=== PATIENT | female | born 1980 | race Caucasian/White ===

== ENCOUNTER 2019-10-20 10:52 | Emergency (ER) | payer OTHER, SELFPAY ==
--- NOTE | ~2019-10-20 | XR_ITS ---
EXAMINATION: XR chest 2V EXAM DATE: 10/20/2019 12:15 INDICATION: Shortness of breath with mid chest pain on inspiration. TECHNIQUE: Frontal and lateral projections of the chest obtained and reviewed. Comparison is made to prior examination from 05/02/2015. FINDINGS: The lungs are clear. There are no pleural effusions. The cardiomediastinal silhouette is within normal limits. There is no pneumothorax suspected. The bones and soft tissues are unremarkab le. IMPRESSION: No acute cardiopulmonary findings. Reviewed, dictated and finalized at location A. WORKER
[2019-10-20 10:56] VITALS: BP 96/77; PULSE 108; RESP 20; TEMP 36.6; O2SAT 100
--- NOTE | 2019-10-20 11:47 | ED.SOB ---
HPI - SOB/Dyspnea General Chief Complaint: Shortness of Breath/Dyspnea Stated Complaint: Breathing problems Time Seen by Provider: 10/20/19 11:46 Source: patient and RN notes reviewed Mode of arrival: ambulatory Limitations: no limitations History of Present Illness HPI Narrative: Pt is a 39 y/o female presenting to the ED c/o SOB. Pt reports she started experiencing SOB about 2 weeks ago that feels like I'm smoking a menthol cigarette when I breath . Pt also reports dry cough, cheat heaviness, and near-syncope earlier today, but denies fever or N/V. Pt states she has a Hx of COPD but notes she had a negative stress test and Echocardiogram 5 months ago. Pt states she has an inhaler at home but notes it has had no effect on her Sx's. Pt reports she is a smoker. Pertinent past history: COPD Onset (ago): week(s) (2) Associated symptoms: chest pain (Heaviness), cough (Dry) and syncope (Near) Related Data Allergies Allergy/AdvReac Type Severity Reaction Status Date / Time Penicillins Allergy Intermediate Rash Verified 10/20/19 10:58 Review of Systems Review of Systems: Narrative: Constitutional: Negative for fever. Respiratory: Positive for dyspnea and dry cough. Cardiovascular: Positive for chest heaviness. Gastrointestinal: Negative for nausea or vomiting. Neurological: Positive for near-syncope. All systems reviewed & are unremarkable except as noted in HPI and below PMFSH Past Medical History Medical History Bronchitis Cervical cancer COPD (chronic obstructive pulmonary disease) HLD (hyperlipidemia) Ovarian cyst Surgical History Surgical History H/O exploratory laparotomy H/O tubal ligation Family History Family History Father Patient's father is Other Diabetes mellitus Hypertension Social History Social History Smoking status: Current every day smoker Second hand tobacco smoke exposure: Yes Alcohol intake: current Gender identity (if verbalized by the patient): Female Exam Narrative: Exam Narrative: Constitutional: Appears well-developed. No distress. Nose: Nose normal. Eyes: Conjunctiva are normal. Neck: Normal range of motion. Neck supple. Cardiovascular: Normal rate and regular rhythm. Pulmonary/Chest: Effort normal and breath sounds normal. Abdominal: Soft. There is no tenderness. Musculoskeletal: Normal range of motion. No edema. Neurological: Alert and oriented to person, place, and time. Skin: Skin is warm. No pallor. Psychiatric: Normal mood and affect. Course Vital Signs Vital signs: Vital Signs Temperature 36.6 C 10/20/19 10:56 Pulse Rate 108 H 10/20/19 10:56 Respiratory Rate 20 10/20/19 10:56 Blood Pressure 96/77 L 10/20/19 10:56 Pulse Oximetry 100 10/20/19 10:56 Temperature 36.6 C 10/20/19 10:56 Pulse Rate 82 10/20/19 15:57 Respiratory Rate 17 10/20/19 15:57 Blood Pressure 106/71 10/20/19 15:57 Pulse Oximetry 99 10/20/19 15:57 MDM - SOB/Dyspnea Lab Data Result diagrams: 10/20/19 12:01 10/20/19 12:01 Labs: Lab Results 10/20/19 10/20/19 10/20/19 Range/Units 12:01 12:01 12:01 WBC 6.7 (4.5-10.0) K/mm3 RBC 4.71 (4.2-5.4) M/mm3 Hgb 15.5 H (12.0-15.0) g/dL Hct 46.0 (37.0-47.0) % MCV 97.7 (80-100) fl MCH 32.9 (26-34) pg MCHC 33.7 (32-36) g/dl RDW 12.2 (11.5-14.5) % Plt Count 232 (150-375) k/mm3 MPV 10.4 (7.4-10.4) fl Immature Gran % (Auto) 0.3 (0-0.5) % Neut % (Auto) 60.2 (45.5-73.1) % Lymph % (Auto) 29.8 (18.3-44.2) % Alexander % (Auto) 7.7 (2.6-8.5) % Eos % (Auto) 1.3 (0-4.4) % Baso % (Auto) 0.7 (0.2-1.2) % Lymph # (Auto) 2.00 (0.9-3.2) K/mm3 Alexander # (Auto) 0.5 (0.1-0.6) K/mm3 Eos # (Auto) 0.1 (0-0.3) K
--- NOTE | 2019-10-20 11:50 | ECG_ITS ---
Measurements Intervals Calvin Rate: 92 P: 59 DC: 152 QRS: 60 QRSD: 85 T: 26 QT: 343 QTc: 425 Interpretive Statements SINUS RHYTHM POSSIBLE LEFT ATRIAL ENLARGEMENT LOW QRS VOLTAGE IN LIMB LEADS BORDERLINE ST-T WAVE ABNORMALITY- ANT/INF LEADS BORDERLINE ECG Electronically Signed On 10-20-2019 12:01:16 SOFTWARE PERFORMANCE ENGINEER by Alex Cee D.O.
[2019-10-20 12:09] LABS: Basophils Absolute Auto 0.1 K/mm3 (0.0-0.1); Basophils Percent Auto 0.7 % (0.2-1.2); Eosinophils Absolute Auto 0.1 K/mm3 (0-0.3); Eosinophils Percent Auto 1.3 % (0-4.4); Hemoglobin 15.5 g/dL (12.0-15.0); Immature Granulocyte Absolute 0.02 K/mm3 (0.00-0.031); Immature Granulocyte Percent A 0.3 % (0-0.5); Lymphocytes Percent Auto 29.8 % (18.3-44.2); Mean Corpuscular HGB Conc 33.7 g/dl (32-36); Mean Corpuscular Hemoglobin 32.9 pg (26-34); Mean Corpuscular Volume 97.7 fl (80-100); Mean Platelet Volume 10.4 fl (7.4-10.4); Monocytes Absolute Auto 0.5 K/mm3 (0.1-0.6); Monocytes Percent Auto 7.7 % (2.6-8.5); Neutrophils Percent Auto 60.2 % (45.5-73.1); Platelet Count Result 232 k/mm3 (150-375); Red Blood Count 4.71 M/mm3 (4.2-5.4); Red Cell Distribution Width 12.2 % (11.5-14.5); White Blood Count 6.7 K/mm3 (4.5-10.0)
[2019-10-20 12:21] LABS: Alanine Aminotransferase 26 U/L (4-35); Alkaline Phosphatase 87 U/L (38-126); Aspartate Amino Transferase 30 U/L (14-36); Bilirubin,Total 0.3 mg/dL (0.2-1.3); Blood Urea Nitrogen 12 mg/dL (7-17); Calcium 8.8 mg/dL (8.4-10.2); Carbon Dioxide 23 mmol/L (22-30); Chloride 101 mmol/L (98-107); Estimated Glomerular Filt Rate > 60; Glucose 101 mg/dL (65-105); Potassium 3.9 mmol/L (3.4-5.0); Sodium 137 mmol/L (137-145)
[2019-10-20 12:32] LABS: D Dimer 0.27 ug/mL (<0.48)
[2019-10-20 12:33] LABS: Troponin I < 0.012 ng/mL (0.000-0.034)
[2019-10-20 14:06] VITALS: BP 102/82; PULSE 82; RESP 14; O2SAT 100
[2019-10-20 15:31] LABS: Troponin I < 0.012 ng/mL (0.000-0.034)
[2019-10-20 15:57] VITALS: BP 106/71; PULSE 82; RESP 17; O2SAT 99
[2019-10-20 16:50] VITALS: BP 134/82; PULSE 72; RESP 17; O2SAT 100
== END 2019-10-20 16:50 | disposition home or self-care (01) ==
PROVIDERS: Emergency Provider Emergency Medicine; PCP Family Medicine
DX: R06.02 Shortness of breath (principal); F41.9 Anxiety disorder, unspecified; J44.9 Chronic obstructive pulmonary disease, unspecified; E78.5 Hyperlipidemia, unspecified; Z85.41 Personal history of malignant neoplasm of cervix uteri; F17.200 Nicotine dependence, unspecified, uncomplicated; R94.31 Abnormal electrocardiogram [ECG] [EKG]
CPT/HCPCS: 36415; 71046; 80053; 81025; 84484; 85025; 85380; 87804; 93005; 99284

== ENCOUNTER 2020-07-19 06:54 | Outpatient (NON) | payer OTHER, SELFPAY ==
[2020-07-20 06:47] LABS: SARS-CoV-2 RNA PCR Negative
== END 2020-07-19 06:55 ==
PROVIDERS: PCP Family Medicine; Visit Provider Family Medicine
DX: Z20.828 Contact with and (suspected) exposure to other viral communicable diseases (principal)
CPT/HCPCS: 87635; C9803; U0003

== ENCOUNTER 2020-10-30 12:47 | Outpatient (CLI) | payer OTHER, SELFPAY ==
--- NOTE | ~2020-10-30 | CT_ITS ---
EXAMINATION: CT sinus wo con DATE: 10/30/2020 13:12 INDICATION: Chronic sinusitis TECHNIQUE: Computed tomography (CT) of the paranasal sinuses was performed without intravenous contra st. The dose-length product (DLP) was 301.30 mGy-cm. Iterative reconstruction was used. COMPARISON: None FINDINGS: There is normal development and pneumatization of the paranasal sinuses. There are polyps o r mucous retention cysts in the left maxillary sinus. One in the posterior sinus measures 1.5 x 0.8 c m and one in the anterior/inferior aspect of the sinus measures 1.8 x 0.6 cm. There is mild mucosal t hickening of the ethmoidal air cells. There is a 0.6 cm polyp or mucous retention cyst in the left sp henoid sinus. The The frontal, right sphenoid, and right maxillary sinuses are clear. The bilateral o stiomeatal complexes are patent. Visualized soft tissues are unremarkable. IMPRESSION: 1. Mild sinus disease as detailed above. Reviewed, dictated and finalized at location A. BLER
== END 2020-10-30 12:48 | disposition home or self-care (01) ==
PROVIDERS: PCP Family Medicine; Visit Provider Otolaryngology
DX: J32.9 Chronic sinusitis, unspecified (principal)
CPT/HCPCS: 70486

== ENCOUNTER 2020-12-04 11:39 | Outpatient (CLI) | payer OTHER, SELFPAY ==
--- NOTE | ~2020-12-04 | MM_ITS ---
EXAMINATION: MM screening minor BI w sal HISTORY: Screening mammogram TECHNIQUE: Craniocaudal and mediolateral oblique 3-D tomosynthesis images were obtained and synthetic 2-D images were generated. Bilateral rotated lateral cc views. CAD analysis was submitted and interp reted. COMPARISON: 07/18/2009 bilateral diagnostic digital mammogram and right breast ultrasound BREAST PARENCHYMAL COMPOSITION: The breasts are heterogeneously dense, which may obscure small masses . FINDINGS: There is no evidence of suspicious mass, calcification, or architectural distortion to sugg est malignancy in either breast. There has been no suspicious interval change. IMPRESSION: 1. No mammographic evidence of malignancy. 2. Recommend routine screening mammography in one year. BI-RADS Category 1: Negative Reviewed, dictated and finalized at location A.
== END 2020-12-04 11:40 | disposition home or self-care (01) ==
LOC: ANHIMG 11:41
PROVIDERS: PCP Family Medicine; Visit Provider Obstetrics & Gynecology
DX: Z12.31 Encounter for screening mammogram for malignant neoplasm of breast (principal)
CPT/HCPCS: 77063; 77067

== ENCOUNTER 2020-12-12 08:12 | Outpatient (CLI) | payer OTHER, SELFPAY | END 2020-12-12 08:13 | disposition home or self-care (01) | LOC: ANHCOVIDVC 08:12 | PROVIDERS: PCP Family Medicine | DX: Z23 Encounter for immunization (principal) | CPT/HCPCS: 0001A; 91300 ==

== ENCOUNTER 2021-01-02 08:15 | Outpatient (CLI) | payer OTHER, SELFPAY | END 2021-01-02 08:16 | disposition home or self-care (01) | LOC: ANHCOVIDVC 08:15 | PROVIDERS: PCP Family Medicine | DX: Z23 Encounter for immunization (principal) | CPT/HCPCS: 0002A; 91300 ==

== ENCOUNTER 2022-07-24 12:56 | Outpatient (CLI) | payer OTHER, SELFPAY | END 2022-07-24 12:57 | disposition home or self-care (01) | LOC: ANHAUDIO 12:58 | PROVIDERS: PCP Family Medicine; Visit Provider Otolaryngology | DX: H91.93 Unspecified hearing loss, bilateral (principal) | CPT/HCPCS: 92552; 92556; 92567 ==

== ENCOUNTER 2023-06-28 15:08 | Outpatient (CLI) | payer OTHER, SELFPAY ==
--- NOTE | ~2023-06-28 | XR_ITS ---
XR chest 2V 06/28/2023 15:19 Indication: Cough for 2 weeks Procedure: 2 view chest Comparison: 10/20/2019 Findings: There is right basilar airspace disease, compatible with pneumonia. No pleural effusion, ed wiliam or pneumothorax. No acute osseous abnormality. Impression: 1: Right basilar airspace disease, compatible with pneumonia. Reviewed, dictated and finalized at location A. Impression: 1: Right basilar airspace disease, compatible with pneumonia.
== END 2023-06-28 15:09 | disposition home or self-care (01) ==
LOC: ANHIMG 15:10
PROVIDERS: PCP Family Medicine; Visit Provider Family Medicine
DX: J84.89 Other specified interstitial pulmonary diseases (principal); R05.9 Cough, unspecified
CPT/HCPCS: 71046